=== PATIENT | female | born 1985 | race Caucasian/White ===

== ENCOUNTER 2022-02-10 09:01 | Emergency (ER) | payer SELFPAY | END 2022-02-10 09:33 | disposition home or self-care (01) | LOC: ERS 09:01 | DX: J01.90 Acute sinusitis, unspecified (principal); Z86.718 Personal history of other venous thrombosis and embolism; F17.290 Nicotine dependence, other tobacco product, uncomplicated | CPT/HCPCS: 99283 ==

== ENCOUNTER 2022-02-17 21:46 | Emergency (ER) | payer OTHER, SELFPAY ==
[2022-02-18] MEDS ORDERED: HYDROcodone/Acetaminophen 5/325 mg Tablet ONE (01:15)
[2022-02-18] MEDS ORDERED: Amoxicillin/Potassium Clav 875 MG TAB ONE (01:16)
[2022-02-18] MEDS ORDERED: Boostrix 0.5 ML (Tdap) VIAL (>/=7 yrs of age) ONE (01:16)
== END 2022-02-18 01:55 | disposition home or self-care (01) ==
LOC: ERS 21:46
DX: S61.452A Open bite of left hand, initial encounter (principal); F17.290 Nicotine dependence, other tobacco product, uncomplicated; W54.0XXA Bitten by dog, initial encounter
CPT/HCPCS: 90471; 90715

== ENCOUNTER 2024-04-06 12:15 | Emergency (ER) | payer SELFPAY ==
[2024-04-06] MEDS ORDERED: Dexamethasone 10 MG/ML VIAL ONE (12:39)
[2024-04-06] MEDS ORDERED: Acetaminophen 500 MG TAB ONE (12:39)
[2024-04-06 13:31] LABS: #Basophils 0.03 10x3/uL (0.0-0.2); %Basophils 0.5 % (0.0-1.0); %Lymphocytes 31.1 % (21.0-51.0); %Monocytes 6.3 % (0.0-10.0); %Neutrophils 58.9 % (42.0-75.0); Hematocrit 36.6 % (36.0-47.0); Mean Corpuscular HGB CONC 32.8 g/dL (32.0-36.0); Mean Corpuscular Hemoglobin 30.5 pg (27.0-31.0); Mean Corpuscular Volume 93.1 fL (78.0-98.0); Mean Platelet Volume 12.6 fL (7.4-10.4); Platelet Count 198 10x3/uL (130-400); RBC Distribution Width 13.1 % (11.5-14.5); Red Blood Cell (RBC) Count 3.93 mill/uL (4.20-5.40)
[2024-04-06 13:47] LABS: BHCG - Serum Negative (NEGATIVE); Pregs Control Background? CLEAR/WHITE (CLR/WHITE); Pregs Control Bar Appear? YES (CONTROL BAR)
[2024-04-06 13:51] LABS: Anion Gap 10 mmol/L (10-20); BUN (Urea Nitrogen) 7 mg/dL (7.0-18.7); Calc. Creatinine Clearance 0 mL/min (70-130); Calcium 9.4 mg/dL (7.8-10.44); Carbon Dioxide 25 mmol/L (22-29); Chloride 109 mmol/L (98-107); Estimated GFR 99; Glucose 105 mg/dL (70-105); Potassium 4.1 mmol/L (3.5-5.1); Sodium 140 mmol/L (136-145)
== END 2024-04-06 14:38 | disposition home or self-care (01) ==
LOC: ERS 12:15
DX: J03.90 Acute tonsillitis, unspecified (principal); F17.210 Nicotine dependence, cigarettes, uncomplicated; F17.290 Nicotine dependence, other tobacco product, uncomplicated
CPT/HCPCS: 70491; 80048; 84703; 85025; 86141; 87081; 87428; 87430; J1100

== ENCOUNTER 2024-10-01 08:00 | Emergency (ER) | payer SELFPAY | END 2024-10-01 08:38 | disposition home or self-care (01) | LOC: ERS 08:00 | DX: K08.89 Other specified disorders of teeth and supporting structures (principal); K02.9 Dental caries, unspecified; K03.81 Cracked tooth | CPT/HCPCS: 99282 ==